=== PATIENT | male | born 1970 | race Caucasian/White ===

== ENCOUNTER 2018-01-15 19:57 | Inpatient (IN) | payer BC ==
[~2018-01-15] VITALS: Ht 180.3 cm; Wt 82.8 kg
--- NOTE | 2018-01-15 20:00 | NUR ---
47 YO male BIB RA from street. Per EMS, patient was found altered on the sidewalk. unknown how he got there, unknown trauma, unknown street drug use. patient was DS to er ninfa. patient is noted to be diaphoretic, tachycardic in the 160's, unable to obtain a blood pressure at this time, pt is moving too much. medicated pt as ordered 2mg IVP Ativan for sedation. patient was restrained per verbal order md Carvajal. PT gowned, 18g left FA IV started, blood sample obtained and sent to lab. rowland cath satrted as ordered, urine sample obtained and sent to lab. patient is still aggitated, will continue to monitor
[2018-01-15] MEDS ORDERED: LORAZEPAM INJ 2 MG/ML VIAL ONE ×2 (20:03→20:16)
[2018-01-15] MEDS ORDERED: ACETAMINOPHEN 650 MG/SUPP.RECT RC ONE ×2 (20:11→20:30)
[2018-01-15] MEDS ORDERED: BENZOIN COMPOUND TINCT 60 ML BOTTLE ONE (20:18)
[2018-01-15] MEDS ORDERED: LORAZEPAM INJ 2 MG/ML VIAL IV ONE ×3 (20:30→22:00)
[2018-01-15] MEDS ORDERED: IV NS 0.9% 1,000 ML BAG IV ONE (20:30)
--- NOTE | 2018-01-15 20:34 | NUR ---
nitubation note: MD Carvajal, RT EMT and RN at bed side for intubation. medicated pt as ordered, 20mg etomidate IVP followed by 80mg rocuronium IVP. PT sedated at 2033, MD Carvajal intubated at 2034, tube size 7.[address] on vent, settings; ac 20 tv 600, peep 5.0 100% fio2
[2018-01-15] MEDS ORDERED: PROPOFOL 100 ML ONE (20:36)
[2018-01-15] MEDS ORDERED: MIDAZOLAM HCL 2 MG/2ML VIAL ONE (20:38)
[2018-01-15 20:39] LABS: BASOPHILS # (AUTO) 0.1 /CMM (0.0-0.2); BASOPHILS % (AUTO) 1.2 % (0.0-2.0); EOSINOPHILS % (AUTO) 1.2 % (0.0-6.0); HEMATOCRIT 46 % (39-51); HEMOGLOBIN 16.3 g/dL (13.5-17.5); LYMPHOCYTES # (AUTO) 3.2 /CMM (0.8-4.8); LYMPHOCYTES % (AUTO) 30.2 % (20.0-44.0); MEAN CORPUSCULAR HEMOGLOBIN 34 PG (26.0-33.0); MEAN CORPUSCULAR HGB CONC 36 g/dl (31.0-36.0); MEAN CORPUSCULAR VOLUME 96 fL (80-96); MONOCYTES # (AUTO) 1.3 /CMM (0.1-1.30); NEUTROPHILS # (AUTO) 5.9 /CMM (1.8-8.9); NEUTROPHILS % (AUTO) 55.4 % (43.0-81.0); PLATELET COUNT (AUTO) 185 /CMM (150-450); RDW COEFFICIENT OF VARIATION 12.1 (11.5-15.0); RED BLOOD CELL COUNT(AUTO) 4.75 MIL/uL (4.5-6.0); WHITE BLOOD COUNT (AUTO) 10.6 K/uL (4.3-11.0)
--- NOTE | 2018-01-15 20:40 | NUR ---
pt transported to CT via gurney with RT, EMT and RN
[2018-01-15 20:50] LABS: CALCIUM, SERUM 8.9 mg/dL (8.5-10.1); CARBON DIOXIDE 19 mmol/L (21-32); CHLORIDE 96 mmol/L (98-107); CREATININE 1.6 mg/dL (0.6-1.3); GLUCOSE 197 mg/dL (74-106); POTASSIUM 3.6 mmol/L (3.5-5.1); SODIUM SERUM 137 mmol/L (136-145); UREA NITROGEN, BLOOD 10 mg/dL (7-18)
[2018-01-15 20:56] LABS: ALANINE AMINOTRANSFERASE 151 U/L (12-78); ALBUMIN 4.4 g/dL (3.4-5.0); ALKALINE PHOSPHATASE 102 U/L (46-116); ASPARTATE AMINOTRANSFERASE 207 U/L (15-37); BILIRUBIN,DIRECT 0.4 mg/dL (0.0-0.2); BILIRUBIN,TOTAL 1.8 mg/dL (0.2-1.0); TOTAL PROTEIN, SERUM 8.1 g/dL (6.4-8.2)
[2018-01-15 20:58] LABS: INR 0.96 (0.85-1.15); TROPONIN I < 0.017 ng/mL (0.00-0.056)
[2018-01-15] MEDS ORDERED: PROPOFOL 100 ML IV PRN (21:00)
[2018-01-15] MEDS ORDERED: VANCOMYCIN 1 GM in IV D5W 250 ML IV ONE (21:00)
[2018-01-15] MEDS ORDERED: CEFTRIAXONE 2 G in IV D5W 50 ML IV ONE (21:00)
[2018-01-15 21:01] LABS: ACETAMINOPHEN < 10 ug/ml (10-30); ALCOHOL, BLOOD < 3 mg/dL (0-0); SALICYLATE < 2.8 mg/dL (2.8-20.0)
[2018-01-15] MEDS ORDERED: CEFTRIAXONE 1 G VIAL ONE (21:05)
[2018-01-15] MEDS ORDERED: VANCOMYCIN 1 GM VIAL ONE (21:05)
--- NOTE | 2018-01-15 21:13 | NUR ---
STARTED ROCEPHIN IV ORDERED
--- NOTE | 2018-01-15 21:27 | NUR ---
urine sample obtained and sent to lab
--- NOTE | 2018-01-15 21:32 | NUR ---
PAGED AdmitSee FOR PANEL - HOME HEALTH CARE[facility]IVER [facility]
[2018-01-15 21:37] LABS: THYROID STIMULATING HORMONE 4.558 uIU/mL (0.358-3.74)
[2018-01-15] MEDS ORDERED: HYDROMORPHONE 1 MG/1 ML DISP.SYRIN IV STA (21:47)
[2018-01-15] MEDS ORDERED: HYDROMORPHONE INJ 2 MG/ML DISP.SYRIN ONE (21:48)
[2018-01-15] MEDS ORDERED: VECURONIUM 10 MG VIAL IV ONE (22:00)
[2018-01-15 22:03] LABS: APPEARANCE,URINE CLEAR (CLEAR); BILIRUBIN,URINE NEGATIVE (NEGATIVE); BLOOD, URINE 2+ Ery/uL (NEGATIVE); COLOR,URINE YELLOW (YELLOW); KETONES,URINE TRACE (NEGATIVE); LEUKOCYTE ESTERASE ,URINE NEGATIVE (NEGATIVE); NITRITE, URINE NEGATIVE (NEGATIVE); PROTEIN,URINE 2+ mg/dl (NEGATIVE); UGLUCOSE TRACE mg/dL (NEGATIVE)
[2018-01-15] MEDS ORDERED: Thiamine 100 MG in IV D5W 50 ML IV ONE (22:30)
[2018-01-15] MEDS ORDERED: MAG HYDROX/AL HYDROX/SIMETH 30 ML UDC PO PRN (22:30)
[2018-01-15] MEDS ORDERED: ACETAMINOPHEN 325 MG TABLET PO PRN (22:30)
[2018-01-15] MEDS ORDERED: HYDROCODONE/APAP 5/325MG 1 EACH TABLET PO PRN (22:30)
[2018-01-15] MEDS ORDERED: MAGNESIUM HYDROXIDE 30 ML UDC PO PRN (22:30)
[2018-01-15] MEDS ORDERED: Z GUARD REMEDY 2 OZ OINT TP PRN (22:30)
[2018-01-15] MEDS ORDERED: ONDANSETRON HCL/PF 4 MG/2 ML VIAL IVP PRN (22:30)
--- NOTE | 2018-01-15 22:30 | NUR ---
Received patient from ED via ACLS intubated bagged by Venkata JIMENEZ and accompanied by RN an EMT. Patient on Diprivan gtt infusing at 70 mcg/kg/min to right arm saline lock and site intact.Connected to mechanical vent by RT on AC 20,TV 600,FIO2 100%,PEEP 5.Admitted with DX:AMS.Patient agitated with bilateral soft wrist restraints on.ST 107 per monitor.Afebrile.Continue to monitor.
[2018-01-15 22:40] VITALS: BP 140/89
[2018-01-15 22:40] LABS: BACTERIA,URINE Moderate /HPF (None Seen); SQUAMOUS EPITHELIAL CELL,UR Few /HPF (None Seen)
[2018-01-15 22:41] LABS: URINE AMORPHOUS URATE Many /HPF (None Seen)
[2018-01-15] MEDS ORDERED: IV NS 0.9% 1,000 ML IV PRN (23:00)
--- NOTE | 2018-01-15 23:00 | NUR ---
Per CXR ETT 8.3 CM above carini.CENTRAL OFFICE REPAIRER,Zhen Colon notified awaiting for orders.
[2018-01-15] MEDS: LORAZEPAM INJ 2 MG/ML VIAL IV PRN (23:11)
--- NOTE | 2018-01-15 23:11 | NUR ---
Patient very agitated PRN Ativan given.Continue to monitor.
[2018-01-15 23:16] LABS: EOSINOPHILS % (AUTO) 0.1 % (0.0-6.0); HEMATOCRIT 39 % (39-51); HEMOGLOBIN 13.2 g/dL (13.5-17.5); LYMPHOCYTES # (AUTO) 0.2 /CMM (0.8-4.8); LYMPHOCYTES % (AUTO) 2.4 % (20.0-44.0); MEAN CORPUSCULAR HEMOGLOBIN 34 PG (26.0-33.0); MEAN CORPUSCULAR HGB CONC 34 g/dl (31.0-36.0); MEAN CORPUSCULAR VOLUME 98 fL (80-96); MONOCYTES # (AUTO) 0.5 /CMM (0.1-1.30); MONOCYTES % (AUTO) 5.5 % (2.0-12.0); PLATELET COUNT (AUTO) 127 /CMM (150-450); RDW COEFFICIENT OF VARIATION 12.9 (11.5-15.0); RED BLOOD CELL COUNT(AUTO) 3.96 MIL/uL (4.5-6.0); WHITE BLOOD COUNT (AUTO) 9.7 K/uL (4.3-11.0)
[2018-01-15] MEDS: PROPOFOL 100 ML IV PRN (23:17)
[2018-01-15 23:23] LABS: ABG BASE EXCESS 0.3 mmol/L; ABG OXYGEN SATURATION 99.2 % (92.0-98.5); ABG PCO2 37.3 mmHg (35.0-45.0); ABG PH 7.432 (7.350-7.450); ABG PO2 474.6 mmHg (75.0-100.0); AaDO2 201.1 mmHg; COHb 0.3 % (0.5-1.5); O2Hb 97.9 % (94.0-97.0); PEEP,BG 5 cm H2O; SITE, ABG Left Brachial
--- NOTE | 2018-01-15 23:24 | NUR ---
POST ABG DONE ON MECH VENT. NOTIFIED RN WITH THE RESULT. FIO2 TITRATED.
[2018-01-15] MEDS ORDERED: Thiamine 100 MG/ML VIAL ONE ×2 (23:27→23:30)
[2018-01-15 23:34] LABS: CALCIUM, SERUM 7.2 mg/dL (8.5-10.1); CARBON DIOXIDE 24 mmol/L (21-32); CHLORIDE 101 mmol/L (98-107); CREATININE 1.2 mg/dL (0.6-1.3); GLUCOSE 191 mg/dL (74-106); LIPASE 147 U/L (73-393); MAGNESIUM 1.5 mg/dL (1.8-2.4); PHOSPHORUS 1.3 mg/dL (2.5-4.9); SODIUM SERUM 138 mmol/L (136-145); UREA NITROGEN, BLOOD 8 mg/dL (7-18)
[2018-01-15 23:37] LABS: POTASSIUM 2.8 mmol/L (3.5-5.1)
--- NOTE | 2018-01-15 23:38 | NUR ---
ETT ADJUSTED PER JUSTICE. TUBE IS NOW AT 26CM AT THE LIP FROM 23CM. FIO2 TITRATED TO 60%. RN NOTIFIED.
[2018-01-15 23:40] VITALS: BP 121/75
[2018-01-15] MEDS ORDERED: PIPERACILLIN /TAZOBACTAM 3.375 G VIAL IV ONE (23:53)
[2018-01-16] VITALS (56 sets, daily range): BP systolic 94–166; BP diastolic 57–111
[2018-01-16] MEDS ORDERED: Potassium Phosphate meq 11 MEQ in IV NS 0.9% 100 ML IV SCH ×2
[2018-01-16 00:01] LABS: CREATINE KINASE MB 5.4 ng/mL (0-3.6)
[2018-01-16] MEDS: PIPERACILLIN /TAZOBACTAM 3.375 G in IV D5W 50 ML IV SCH ×5 (00:09→23:34)
[2018-01-16] MEDS: IV NS 0.9% 1,000 ML IV PRN ×3 (00:36→16:14)
[2018-01-16] MEDS: PROPOFOL 100 ML IV PRN ×10 (00:44→22:09)
[2018-01-16] MEDS: Magnesium 1GM/D5W 100ML PREMIX 100 ML IV SCH ×2 (00:46→01:46)
[2018-01-16] MEDS ORDERED: ROCURONIUM BROMIDE 50 MG/5 ML IV ONE (01:00)
[2018-01-16] MEDS ORDERED: ETOMIDATE 2 MG/ML VIAL IV ONE (01:00)
[2018-01-16] MEDS ORDERED: VECURONIUM 10 MG VIAL IV ONE (01:00)
[2018-01-16] MEDS ORDERED: NORMAL SALINE 10 ML DISP.SYRIN IV ONE (01:00)
[2018-01-16] MEDS: Potassium Phosphate meq 11 MEQ in IV D5W 100 ML IV SCH ×2 (02:00→05:18)
--- NOTE | 2018-01-16 02:00 | NUR ---
Potassium level 2.8 CHAIR CANER,Colon notified with orders.Potassium phosphate gtt started and Magnesium 2 gm iv given
--- NOTE | 2018-01-16 04:00 | NUR ---
Patient resting.VS stable.AM care done.Turned and repositioned.No distress noted.
[2018-01-16 04:49] LABS: EOSINOPHILS % (AUTO) 0.1 % (0.0-6.0); HEMATOCRIT 39 % (39-51); HEMOGLOBIN 13.5 g/dL (13.5-17.5); LYMPHOCYTES # (AUTO) 0.5 /CMM (0.8-4.8); LYMPHOCYTES % (AUTO) 6.1 % (20.0-44.0); MEAN CORPUSCULAR HEMOGLOBIN 34 PG (26.0-33.0); MEAN CORPUSCULAR HGB CONC 35 g/dl (31.0-36.0); MEAN CORPUSCULAR VOLUME 97 fL (80-96); MONOCYTES # (AUTO) 0.6 /CMM (0.1-1.30); MONOCYTES % (AUTO) 7.4 % (2.0-12.0); NEUTROPHILS # (AUTO) 6.7 /CMM (1.8-8.9); NEUTROPHILS % (AUTO) 86.4 % (43.0-81.0); PLATELET COUNT (AUTO) 130 /CMM (150-450); RDW COEFFICIENT OF VARIATION 13.3 (11.5-15.0); RED BLOOD CELL COUNT(AUTO) 3.98 MIL/uL (4.5-6.0); WHITE BLOOD COUNT (AUTO) 7.7 K/uL (4.3-11.0)
[2018-01-16 05:07] LABS: ALBUMIN 3.2 g/dL (3.4-5.0); BILIRUBIN,DIRECT 0.4 mg/dL (0.0-0.2); BILIRUBIN,TOTAL 0.9 mg/dL (0.2-1.0); CALCIUM, SERUM 7.4 mg/dL (8.5-10.1); CREATININE 1.1 mg/dL (0.6-1.3); MAGNESIUM 2.6 mg/dL (1.8-2.4); PHOSPHORUS 1.9 mg/dL (2.5-4.9)
[2018-01-16 05:14] LABS: POTASSIUM 2.6 mmol/L (3.5-5.1)
--- NOTE | 2018-01-16 05:15 | NUR ---
AM labs resulted.K+ level 2.6.Potassium phosphate 2nd bag still infusing.
[2018-01-16 05:16] LABS: THYROID STIMULATING HORMONE 1.168 uIU/mL (0.358-3.74)
--- NOTE | 2018-01-16 07:41 | NUR ---
INITIAL TALENT AGENT NOTE RCVD PT INTUBATED, SEDATED ON DIPRIVAN, BILATERAL SOFT WRIST RESTRAINTS IN PLACE. CIRCULATION CHECKS DONE. SR ON TELE. ETT 7.5 26 AT LIP TOLERATING ORDERED VENT SETTINGS. NO S/O DISTRESS OBSERVED. RIGHT NG TUBE PLACEMENT VERIFIED BY AUSCULTATION/ASPIRATION, GASTRIC CONTENTS OBSERVED IN TUBING. CAMACHO DRAINING PALE, YELLOW URINE. IV SITES C/D/I/PATENT. NO S/O INFILTRATION/PHLEBITIS OBSERVED. IVF INFUSING. WILL CONTINUE TO MONITOR PT FOR SAFETY AND COMFORT. BED IN LOW AND LOCKED POSITION.
[2018-01-16] MEDS: PANTOPRAZOLE 40 MG VIAL IV SCH (08:23)
[2018-01-16] MEDS: VANCOMYCIN 1 GM in IV D5W 250 ML IV SCH ×2 (08:27→16:06)
[2018-01-16] MEDS ORDERED: FEE PK DOSING 1 MIN EA MC ONE (08:54)
--- NOTE | 2018-01-16 10:11 | NUR ---
RUN BOAT OPERATOR NOTE PT TRANSPORTED TO RADIOLOGY FOR CT ABDOMEN/PELVIS PER PROTOCOL WITH RT/RN AT BEDSIDE. PT TOLERATED TRANSPORT WELL BACK IN ROOM AT THIS TIME.
[2018-01-16] MEDS: POTASSIUM CL. PREMIX PERIPHER. 50 ML IV SCH ×10 (10:47→21:01)
[2018-01-16 10:58] LABS: PHOSPHORUS 1.8 mg/dL (2.5-4.9)
[2018-01-16 11:00] LABS: POTASSIUM 2.4 mmol/L (3.5-5.1)
--- NOTE | 2018-01-16 11:12 | NUR ---
Pts nurse Sharon Cohen requested social work consult for this 47-year-old male brought in by ambulance due to "lack of family support." Pt was found laying down in a driveway. Per EMS report, the patient was initially confused and then became combative and was given 5 mg of Versed IM in the field without much response. SW attempted to speak to pt however pt. was intubated and sedated. Per nurse, pt did not have any possessions on his body other than a [place] drivers license. SW reviewed pts chart to look for identifying information and or emergency contact information that could be of help. Pt does not have an emergency person to notify on face sheet. SW called pts contact telephone # (found on face sheet) and recording states, # is disconnected and no longer in service. SW also contacted Missing Persons and spoke to Detective Keller in order to see if pt had been reported missing. Per Detective Keller, pt did not show up as a missing person on their system (i.e. system was checked 2xs). SW attempted to find information pertaining to pts relatives, however was unsuccessful. Plan: GRECIA will follow up with pt and medical team in order to guide course of action going forward.
--- NOTE | 2018-01-16 11:14 | NUR ---
EMERGENCY MEDICINE NOTE CHANGES IN ECG OBSERVED ON TELE MONITOR, ECG ORDERED AND DIFFERS FROM BASELINE, DR. GREEN AND TAMIE MUSA INFORMED. DR. XIE IN UNIT INFORMED TROPONIN ORDERED. TROPONIN RESULTS GIVEN TO DR. GREEN NO FURTHER ORDERS RCVD AFTER HE ACKNOWLEDGED RESULTS.
[2018-01-16] MEDS: LORAZEPAM INJ 2 MG/ML VIAL IV PRN ×2 (12:13→21:19)
--- NOTE | 2018-01-16 14:48 | NUR ---
LION TRAINER NOTE SEDATION VACATION PERFORMED. PT ABLE TO FOLLOW COMMANDS SIMV TRIAL DONE PT APPEARED RESTLESS, ATTEMPTING TO SIT AND GET OUT OF BED DESPITE BEING RE-ORIENTED AND GIVEN DIRECTIONS TO REMAIN CALM. PT APPEARS TO BE REACHING TO SOMETHING THAT'S NOT PRESENT IN THE ROOM. DR. DENNIS IN UNIT CAME TO ASSESS PT AND RECOMMENDED TO PLACE PT BACK ON SEDATION AND ATTEMPT TRIAL IN AM. WILL CONTINUE TO MONITOR PT.
--- NOTE | 2018-01-16 15:29 | NUR ---
BARREL LATHE OPERATOR OUTSIDE NOTE SPOKE WITH GRECIA PRETTY REGARDING PT'S EMERGENCY CONTACT INFORMATION. NOTHING NEW AT THIS TIME. LEFT MESSAGE FOR DR. FRIAS LETTING HER KNOW THAT PT UNABLE TO SIGN CONSENT FOR LP AND NO KNOWN FAMILY/EMERGENCY CONTACT AVAILABLE AT THIS TIME.
--- NOTE | 2018-01-16 15:49 | NUR ---
WAITING FOR THE CONSENT AND RADIOLOGIST IS LEAVING BEFORE 4PM, INFORMED NURSE ABOUT IT.
[2018-01-16] MEDS: Potassium Phosphate meq 11 MEQ in IV NS 0.9% 100 ML IV SCH ×2 (16:29→19:32)
--- NOTE | 2018-01-16 18:57 | NUR ---
WATERPROOFER HELPER NOTE PT REMAINS SEDATED, INTUBATED TOLERATING WELL, SR ON TELE. RIGHT NG TUBE IN PLACE, CLAMPED. CAMACHO TO GRAVITY DRAINING PALE GREENISH URINE. IV SITES C/D/I/PATENT. IVF INFUSING. BILATERAL SOFT WRIST RESTRAINTS IN PLACE. CIRCULATION CHECKS DONE. PT'S CARE WILL BE ENDORSED TO COMPUTER REPAIRER RN FOR CONTINUITY OF CARE. BED IN LOW AND LOCKED POSITION.
--- NOTE | 2018-01-16 19:30 | NUR ---
Received patient sedated occasionally open eyes not following commands.Patient orally intubated to mechanical vent with same prescribed settings and tolerating well.No distress noted.SR per monitor. VS stable.NGT to right nares verified placement intact ,patent and clamped.Remains on NPO status. FC to gravity draining yellow urine. All iv's infusing well and sites intact.Turned and repositioned.
--- NOTE | 2018-01-16 20:00 | NUR ---
Telephone consent for Lumbar Puncture obtained from patient mother Natalee Downey witness by 2 RN.
--- NOTE | 2018-01-16 20:10 | NUR ---
Patient GF visiting with permission from patient mother.Updated of patient status.
--- NOTE | 2018-01-16 21:20 | NUR ---
Patient agitated and PRN Ativan administered.Continue to monitor.
[2018-01-17] VITALS (48 sets, daily range): BP systolic 109–183; BP diastolic 55–135
--- NOTE | 2018-01-17 | NUR ---
Patient resting vs remains stable.No distress noted.Turned and repositioned.
[2018-01-17] MEDS: PROPOFOL 100 ML IV PRN ×5 (00:19→12:20)
[2018-01-17] MEDS: VANCOMYCIN 1 GM in IV D5W 250 ML IV SCH ×3 (00:22→16:29)
[2018-01-17] MEDS: IV NS 0.9% 1,000 ML IV PRN ×3 (00:22→18:03)
--- NOTE | 2018-01-17 04:00 | NUR ---
VS stable.Bed bath rendered and complete linens changed.Oral care done.Turned and repositioned.
[2018-01-17 04:41] LABS: BASOPHILS % (AUTO) 0.1 % (0.0-2.0); HEMATOCRIT 39 % (39-51); HEMOGLOBIN 13.3 g/dL (13.5-17.5); LYMPHOCYTES # (AUTO) 0.8 /CMM (0.8-4.8); MEAN CORPUSCULAR HEMOGLOBIN 34 PG (26.0-33.0); MEAN CORPUSCULAR HGB CONC 34 g/dl (31.0-36.0); MEAN CORPUSCULAR VOLUME 98 fL (80-96); MONOCYTES # (AUTO) 0.7 /CMM (0.1-1.30); MONOCYTES % (AUTO) 9.4 % (2.0-12.0); NEUTROPHILS # (AUTO) 5.4 /CMM (1.8-8.9); NEUTROPHILS % (AUTO) 78.5 % (43.0-81.0); PLATELET COUNT (AUTO) 108 /CMM (150-450); RDW COEFFICIENT OF VARIATION 13.4 (11.5-15.0); RED BLOOD CELL COUNT(AUTO) 3.99 MIL/uL (4.5-6.0); WHITE BLOOD COUNT (AUTO) 6.9 K/uL (4.3-11.0)
[2018-01-17 05:07] LABS: BILIRUBIN,TOTAL 0.9 mg/dL (0.2-1.0); CALCIUM, SERUM 7.5 mg/dL (8.5-10.1); POTASSIUM 3.4 mmol/L (3.5-5.1); TOTAL PROTEIN, SERUM 5.8 g/dL (6.4-8.2)
[2018-01-17 05:12] LABS: BILIRUBIN,DIRECT 0.4 mg/dL (0.0-0.2); BILIRUBIN,TOTAL 0.9 mg/dL (0.2-1.0); TOTAL PROTEIN, SERUM 5.9 g/dL (6.4-8.2)
[2018-01-17 05:15] LABS: TROPONIN I 0.473 ng/mL (0.00-0.056)
[2018-01-17] MEDS: PIPERACILLIN /TAZOBACTAM 3.375 G in IV D5W 50 ML IV SCH ×4 (05:30→23:23)
--- NOTE | 2018-01-17 05:36 | NUR ---
Patient abnormal labs relayed to FOREIGN EXCHANGE STUDENT COORDINATOR,Zhen Colon.Troponin 0.473 and blood culture gm positive cocci in clusters. Patient is already on Vancomycin and Zosyn.No new orders received.
--- NOTE | 2018-01-17 07:49 | NUR ---
INITIAL CREATIVE WRITER NOTE RCVD PT LIGHTLY SEDATED, INTUBATED, SR ON TELE SHOWING NO S/O DISTRESS/PAIN AT THIS TIME. TOLERATING ORDERED VENT SETTINGS. CAMACHO TO GRAVITY AND NG TUBE PLACEMENT VERIFIED BY AUSCULTATION/ASPIRATION, GASTRIC CONTENTS OBSERVED IN TUBING. IV SITES C/D/I/PATENT. NO S/O INFILTRATION/PHLEBITIS OBSERVED UPON FLUSHING. WILL CONTINUE TO MONITOR PT FOR SAFETY AND COMFORT. BED IN LOW AND LOCKED POSITION. CALL LIGHT WITHIN REACH.
[2018-01-17] MEDS: PANTOPRAZOLE 40 MG VIAL IV SCH (08:20)
--- NOTE | 2018-01-17 10:36 | NUR ---
SW met with pts nurse Sharon Begun to follow up on any updates regarding pts family. Pts nurse stated they were able to make contact with pts mother and girlfriend. Pts girlfriend was at bedside currently. Pt has no other psychosocial needs at this time and we will re evaluate if necessary.
[2018-01-17 11:12] LABS: CSF GLUCOSE 61 mg/dL (40-70); CSF PROTEIN 38.1 mg/dL (15-45)
--- NOTE | 2018-01-17 11:12 | NUR ---
JEWEL CORNER BRUSHING MACHINE OPERATOR NOTE PT TAKEN TO RADIOLOGY FOR LUMBAR PUNCTURE, PT SEDATED TRANSPORTED VIA BED PER PROTOCOL WITH RN/RT AT BEDSIDE. PT TOLERATED PROCEDURE WELL. PT WAS BROUGHT BACK TO HIS ROOM, VITAL SIGNS STABLE. PT'S SIGNIFICANT OTHER AT BEDSIDE UPDATED ON PT'S CONDITION. WILL CONTINUE TO MONITOR
[2018-01-17] MEDS ORDERED: LORAZEPAM INJ 2 MG/ML VIAL IV PRN (11:30)
[2018-01-17] MEDS: POTASSIUM CL. PREMIX PERIPHER. 50 ML IV SCH ×4 (11:32→15:27)
--- NOTE | 2018-01-17 14:00 | NUR ---
COMPUTER TESTER NOTE SEDATION VACATION PERFORMED PT AWAKE, ABLE TO FOLLOW COMMANDS, APPEARS CALM AT THIS TIME. WEANING TRIAL STARTED WILL CONTINUE TO MONITOR.
[2018-01-17 15:17] LABS: ABG BASE EXCESS -3.3 mmol/L; ABG OXYGEN SATURATION 98.5 % (92.0-98.5); ABG PH 7.427 (7.350-7.450); ABG PO2 171.7 mmHg (75.0-100.0); AaDO2 77.9 mmHg; COHb 0.3 % (0.5-1.5); MetHb 0.8 % (0.0-1.5); O2Hb 97.4 % (94.0-97.0); PEEP,BG 5 cm H2O; SITE, ABG Right Brachial; VT, ABG 600 mL
[2018-01-17] MEDS ORDERED: DC PROPOFOL WHEN EXTUBATED XX PRN (15:30)
--- NOTE | 2018-01-17 15:40 | NUR ---
PT EXTUBATED PER MD ORDER POST WEAVING TRIAL AND ABG. ZERO DISTRESS NOTED PT ABLE TO COUGH CLEAR AIRWAY. PLACED ON 2 LPM O2. ZERO STRIDOR NOTED B/S CLEAR.
--- NOTE | 2018-01-17 16:34 | NUR ---
SALES SERVICE ASSISTANT NOTE BEDSIDE SWALLOW EVAL DONE PT ABLE TO TOLERATE ICE CHIPS, THIN LIQUIDS, PUDIN, AND JELLOW CONSISTENCIES. NO COUGHING OR CLEARING OF THROAT OBSERVED. DINNER TRAY ORDERED. WILL CONTINUE TO MONITOR.
--- NOTE | 2018-01-17 18:55 | NUR ---
DICTATING MACHINE TYPIST NOTE PT'S VITAL SIGNS REMAIN STABLE, TOLERATING O2 VIA NC, SR ON TELE, NG-TUBE AND CAMACHO CATH DISCONTINUED. IV SITES C/D/I/PATENT. NO S/O INFILTRATION/PHLEBITIS OBSERVED IVF INFUSING. PT'S SIGNIFICANT OTHER AT BEDSIDE. PT'S CARE WILL BE ENDORSED TO ADVERTISING WRITER RN FOR CONTINUITY OF CARE. BED IN LOW AND LOCKED POSITION. CALL LIGHT WITHIN REACH. Addendum: 01/17/18 at 1929 by ABA WRIGHT RN TAMIE MUSA INFORMED OF PT'S MENTAL STATUS. PT SEEMS TO BE HAVING HALLUCINATIONS, AND SEEING THINGS. PER PT'S GIRLFRIEND THIS IS NOT PT'S BASELINE. LENCHO RECOMMENDED PSYCHIATRIC CONSULT WITH DR. SPARKS. ADVERTISING WRITER RN INFORMED.
--- NOTE | 2018-01-17 19:49 | NUR ---
ICU NOTES ON INITIAL ASSESSMENT AT 1930 PT WAS AAOX3.WENT BACK TO ROOM AND PT'S HEAD WAS IN BETWEEN SIDE RAILS ATTEMPTING TO REACH A CUP.CONFUSED AND DISORIENTED AT THI POINT,RE-ORIENTED TO TIME PLACE AND PERSON PLUS SURROUNDINGS.DRANK A GLASSFUL OF WATER.BED ALARM ON, SIDE RAILS UPX3,BED ON LOW POSITION AND CALL LIGHT W/IN REACH OF PT.
--- NOTE | 2018-01-17 20:20 | NUR ---
ICU/RN PARENTS AND GIRLFRIEND AT BEDSIDE.PARENTS INFORMED OF PT'S CONDITION.PT HOSTILE AT TIMES AND CURSES A LOT.GIRLFRIEND TOLD ME THAT PT.DRINKS 1 BOTTLE OF VODKA A DAY.
--- NOTE | 2018-01-17 23:40 | NUR ---
POWERHOUSE ENGINEER NOTE NOTED PATIENT REMOVING ALL LINES AND MONITORING DEVICES, REORIENTED PATIENT, PATIENT BECAME AGGRESSIVE AND DEMANDED FOR HIS GIRLFRIEND TO BE PRESENT. GIRLFRIEND WAS CALLED AND AGREED TO STAY WITH PATIENT, CHARGE NURSE GAVE PERMISSION FOR GF TO STAY. GIRLFRIEND ARRIVED TO CALM PATIENT DOWN, PATIENT BECAME AGGRESSIVE TOWARDS GIRLFRIEND AND MYSELF, CHARGE NURSE NOTIFIED AND ELIJAH BRUSH CALLED. PATIENT EXTREMELY PARANOID WITH AUDITORY HALLUCINATIONS, HEARING VOICES AND TALKING TO SELF. AFTER 30 MINUTES PATIENT CALMED DOWN. NO INJURY NOTED.
[2018-01-18] VITALS: BP 139/98
[2018-01-18] MEDS: VANCOMYCIN 1 GM in IV D5W 250 ML IV SCH ×4 (00:16→23:13)
--- NOTE | 2018-01-18 02:02 | NUR ---
ICU/RN UNABLE TO GET BP,O2 SATURATION PT REFUSED TO HAVE THEM ON.PT STEVENM W/ GIRLFRIEND LYING BESIDE HIM. Addendum: 01/18/18 at 0400 by ALEJANDRO UMAÑA RN JASON MURGUIA.
--- NOTE | 2018-01-18 04:20 | NUR ---
ICU/RN RESHMA SPORTS THERAPIST CALLED FOR PT'S C/O SEVERE BACK PAIN[CHRONIC]GIVEN 2MG MORPHINE IVP ORDERED.CONNECTED IVF TO RT.HAND IV SITE IN ORDER TO GIVE ABX.PT CONTINUES TO REFUSE TO BE CONNECTED TO MONITOR AND PULSE OXIMETRY EVEN W/ MUCH ENCOURAGEMENT.
[2018-01-18] MEDS: MORPHINE SULFATE INJ 2 MG/ML DISP.SYRIN IV PRN (04:30)
[2018-01-18 04:58] LABS: BASOPHILS % (AUTO) 0.4 % (0.0-2.0); EOSINOPHILS % (AUTO) 0.7 % (0.0-6.0); HEMATOCRIT 38 % (39-51); HEMOGLOBIN 13.1 g/dL (13.5-17.5); LYMPHOCYTES # (AUTO) 0.7 /CMM (0.8-4.8); LYMPHOCYTES % (AUTO) 10.3 % (20.0-44.0); MEAN CORPUSCULAR HEMOGLOBIN 34 PG (26.0-33.0); MEAN CORPUSCULAR HGB CONC 34 g/dl (31.0-36.0); MEAN CORPUSCULAR VOLUME 99 fL (80-96); MONOCYTES # (AUTO) 0.7 /CMM (0.1-1.30); MONOCYTES % (AUTO) 10.4 % (2.0-12.0); NEUTROPHILS # (AUTO) 5.2 /CMM (1.8-8.9); NEUTROPHILS % (AUTO) 78.2 % (43.0-81.0); PLATELET COUNT (AUTO) 119 /CMM (150-450); RED BLOOD CELL COUNT(AUTO) 3.86 MIL/uL (4.5-6.0); WHITE BLOOD COUNT (AUTO) 6.7 K/uL (4.3-11.0)
--- NOTE | 2018-01-18 05:00 | NUR ---
ICU./RN. SOME OF THE INTERVENTIONS NOT PERFORMED PT UNCOOPERATIVE.
[2018-01-18 05:07] LABS: CALCIUM, SERUM 8.3 mg/dL (8.5-10.1); CREATININE 0.9 mg/dL (0.6-1.3); POTASSIUM 3.5 mmol/L (3.5-5.1)
[2018-01-18] MEDS: PIPERACILLIN /TAZOBACTAM 3.375 G in IV D5W 50 ML IV SCH ×4 (05:20→23:13)
--- NOTE | 2018-01-18 07:00 | NUR ---
ICU/RN CONTINUES TO REFUSE MONITOR, PULSE OXIMETRY,VITAL SIGNS.SLEPT AT INTERVALS AFTER MORPHINE GIVEN.
--- NOTE | 2018-01-18 07:31 | NUR ---
ICU/RN REPOT AND CARE OF PT.GIVEN TO YURI.PT CALM AT THIS TIME.INFORMED CN AND YURI REGARDING BLISTER ON LEFT FOREARM AND TO TAKE PICTURE OF IT PT.REFUSED TO HAVE IT DONE.
--- NOTE | 2018-01-18 08:00 | NUR ---
Patient is awake and alert, receiving IV antibiotics around the clock. He has some generalized pain, however is not requesting any pain meds. Venkata Gooden RN
[2018-01-18] MEDS: PANTOPRAZOLE 40 MG VIAL IV SCH (08:24)
--- NOTE | 2018-01-18 10:00 | NUR ---
Patient is off cardioscope since last noc, and doctors are aware. Family, girlfriend at bedside. Venkata Gooden RN
--- NOTE | 2018-01-18 12:30 | NUR ---
Dr Ramírez visits patient updated on present condition and orders written. Patient is not eating lunch due to sore left tongue. aware. Venkata Gooden RN
[2018-01-18 16:00] VITALS: BP 149/84
--- NOTE | 2018-01-18 16:00 | NUR ---
Patient ambulated in carver with girlfriend. He has stable gait, and no sob noted while walking. Venkata Gooden RN
--- NOTE | 2018-01-18 18:31 | NUR ---
Patient transferring to room 313 bed 1, and report called to Payal SANTOS receiving patient. Will transport via . Venkata Gooden RN
[2018-01-18 19:02] VITALS: BP 146/88
[2018-01-18] MEDS: LACTOBACILLUS RHAMNOSUS GG 1 EACH CAP.SPRINK PO SCH (19:02)
--- NOTE | 2018-01-18 19:40 | NUR ---
1854- PATIENT ARRIVED FROM ICU.ZOSYN RUNNING PER ORDERS PER SAUSAGE MEAT TRIMMERTYRON. PATIENT AOX4,. NONLABORED BREATHING NOTED ON ROOM AIR. DENYING PAIN. PATIENT AMBULATING WITH STEADY MANNER WITH ASSISTANCE. IV SITE ON RIGHT FOREARM PATENT AND INTACT. IV ON RT WRIST GAUGE 20 PATENT AND INTACT. DENYING HALLUCINATIONS. EDUCATED DIRECTOR OF TEACHING AND LEARNING LIGHT USAGE. BED IN LOWEST LOCKED POSITION. CALL LIGHT WITHIN REACH. ENDORSED TO NEXT SHIFT
[2018-01-18 20:00] VITALS: BP 150/95
--- NOTE | 2018-01-18 20:00 | NUR ---
RECEIVED PT ALERT , ORIENTED, AMBULATORY, PT WITH GIRLFRIEND REQUESTING TO HAVE HIS HAIR WASH UP, GIVEN LIQUID SOAP AND CLOTHES AND TOWELS . PT ASSISTED BY GIRLFRIEND IN THE SHOWER ROOM. PT DENIES ANY PAIN OR DISCOMFORT, HEPLOCK RIGHTFOREARM REMOVED DUE TO INFILTRATION AND REDNESS AND TENDER. LEFT WITH 1 IV SITE RIGHT ARM PATENT AND INTACT.CONTINUE WITH ANTIBIOTICS, VSS,AFEBRILE.
[2018-01-19] MEDS: PIPERACILLIN /TAZOBACTAM 3.375 G in IV D5W 50 ML IV SCH ×2 (05:42→12:52)
--- NOTE | 2018-01-19 07:00 | NUR ---
PT SLEPT WELL OVERNIGHT, VOIDED TO TOILET X3 OVERNIGHT, DENIES ANY PAIN OR DISCOMFORT,CONTINUE WITH ANTIBIOTICS. ALL NEEDS ATTENDED.NO SIGNIFICANT CHANGE OVERNIGHT.
--- NOTE | 2018-01-19 07:33 | NUR ---
RN INITIAL NOTES PATIENT AOX4,. NONLABORED BREATHING NOTED ON ROOM AIR. DENYING PAIN. IV SITE PATENT AND INTACT. DENYING HALLUCINATIONS. EDUCATED CHARGE RN LIGHT USAGE. BED IN LOWEST LOCKED POSITION. CALL LIGHT WITHIN REACH. DENYING SI AND HI
[2018-01-19 07:44] LABS: BASOPHILS % (AUTO) 0.5 % (0.0-2.0); EOSINOPHILS % (AUTO) 2.9 % (0.0-6.0); HEMATOCRIT 40 % (39-51); HEMOGLOBIN 13.6 g/dL (13.5-17.5); LYMPHOCYTES # (AUTO) 0.9 /CMM (0.8-4.8); LYMPHOCYTES % (AUTO) 15.8 % (20.0-44.0); MEAN CORPUSCULAR HEMOGLOBIN 34 PG (26.0-33.0); MEAN CORPUSCULAR HGB CONC 34 g/dl (31.0-36.0); MEAN CORPUSCULAR VOLUME 98 fL (80-96); MONOCYTES # (AUTO) 0.9 /CMM (0.1-1.30); NEUTROPHILS # (AUTO) 3.6 /CMM (1.8-8.9); NEUTROPHILS % (AUTO) 64.8 % (43.0-81.0); PLATELET COUNT (AUTO) 135 /CMM (150-450); RDW COEFFICIENT OF VARIATION 12.9 (11.5-15.0); RED BLOOD CELL COUNT(AUTO) 4.05 MIL/uL (4.5-6.0); WHITE BLOOD COUNT (AUTO) 5.6 K/uL (4.3-11.0)
[2018-01-19 08:00] VITALS: BP 152/90
[2018-01-19 08:00] LABS: CALCIUM, SERUM 8.8 mg/dL (8.5-10.1); CREATININE 0.9 mg/dL (0.6-1.3); POTASSIUM 3.6 mmol/L (3.5-5.1)
[2018-01-19] MEDS: LACTOBACILLUS RHAMNOSUS GG 1 EACH CAP.SPRINK PO SCH ×2 (08:26→16:32)
[2018-01-19] MEDS: MORPHINE SULFATE INJ 2 MG/ML DISP.SYRIN IV PRN (08:30)
[2018-01-19] MEDS: VANCOMYCIN 1 GM in IV D5W 250 ML IV SCH ×2 (08:54→16:32)
[2018-01-19] MEDS: PANTOPRAZOLE 40 MG TABLET.DR PO SCH (10:06)
[2018-01-19 16:00] VITALS: BP 128/84
--- NOTE | 2018-01-19 16:30 | NUR ---
PATIENT STATING THAT HE HAS NO KNOWN ALLERGIES
--- NOTE | 2018-01-19 19:11 | NUR ---
MS RN NOTES Report received. Patient received in bed, resting comfortably, awake and verbally responsive. Alert & oriented x4. Family at bedside. IV on right hand SL noted. Not in any type of distress. Denies any pain at this moment. Safety measures in place. will continue to monitor and assess patient
--- NOTE | 2018-01-19 19:15 | NUR ---
RN CLOSING NOTES PATIENT AOX4,. NONLABORED BREATHING NOTED ON ROOM AIR. DENYING PAIN. IV SITE PATENT AND INTACT. DENYING HALLUCINATIONS. EDUCATED MANAGER STUDY LIGHT USAGE. BED IN LOWEST LOCKED POSITION. CALL LIGHT WITHIN REACH. DENYING SI AND HI ENDORSED TO TOM GARZA
[2018-01-19 20:00] VITALS: BP 148/77
[2018-01-19 22:00] VITALS: BP 148/77
--- NOTE | 2018-01-20 07:27 | NUR ---
MS RN CLOSING NOTES All needs provided and met. no changes noted or reported. Safety measures in place. Report endorsed to TOM Zarate.
--- NOTE | 2018-01-20 07:29 | NUR ---
RN OPENING NOTES RECEIVED PATIENT IN STABLE CONDITION, RESTING IN BED, A/OX4, ABLE TO VERBALIZE NEEDS. NO ACUTE DISTRESS, NO SOB. DENIED PAIN OR DISCOMFORT AT THE MOMENT. IV SITE INTACT AND PATENT. KEPT PATIENT SAFE AND COMFORTABLE. BED IN LOW/LOCKED POSITION, SIDERAILS UPX2, CALL LIGHT IN REACH. WILL CONTINUE TO MONITOR ACCORDINGLY.
[2018-01-20 08:00] VITALS: BP 147/84
[2018-01-20] MEDS: PANTOPRAZOLE 40 MG TABLET.DR PO SCH (08:46)
[2018-01-20] MEDS: LACTOBACILLUS RHAMNOSUS GG 1 EACH CAP.SPRINK PO SCH (08:46)
[2018-01-20 09:16] LABS: *WEST NILE VIRUS IgG, CSF Negative (Negative)
[2018-01-20 12:11] LABS: *WEST NILE VIRUS IgM, CSF Negative (Negative)
--- NOTE | 2018-01-20 12:45 | NUR ---
CELLULAR BIOLOGIST NOTES DISCHARGED PATIENT IN STABLE CONDITION, PICKED UP BY [facility], ACCOMPANIED PATIENT VIA WHEELCHAIR AT THE LOBBY BY PRIMARY RN. DISCHARGE INSTRUCTIONS GIVEN TO PATIENT, VERBALIZED UNDERSTANDING, DISCHARGE PAPERWORK GIVEN. ALL BELONGINGS RETURNED, FORM SIGNED. REMOVED IV, APPLIED PRESSURE, NO BLEEDING, NO COMPLICATIONS. REMOVED NAME BAND.
== END 2018-01-20 12:50 | disposition home or self-care (01) | DRG 917 ==
LOC: ER 19:59 → ICU 21:24 → MED 01-18 18:40
PROVIDERS: ADMIT Nurse Practitioner Acute Care; ATTEND Nurse Practitioner Acute Care
PROC: 0BH18EZ Insertion of Endotracheal Airway into Trachea, Via Natural or Artificial Opening Endoscopic (ICD-10-PCS; principal; 2018-01-15)
PROC: 5A1945Z Respiratory Ventilation, 24-96 Consecutive Hours (ICD-10-PCS; principal; 2018-01-15)
PROC: 00JU3ZZ Inspection of Spinal Canal, Percutaneous Approach (ICD-10-PCS; 2018-01-17)
DX: T50.901A Poisoning by unspecified drugs, medicaments and biological substances, accidental (unintentional), initial encounter (principal); A41.9 Sepsis, unspecified organism; N17.0 Acute kidney failure with tubular necrosis; J96.00 Acute respiratory failure, unspecified whether with hypoxia or hypercapnia; K72.00 Acute and subacute hepatic failure without coma; I21.A1 Myocardial infarction type 2; G92 Toxic encephalopathy; R65.20 Severe sepsis without septic shock; T67.0XXA Heatstroke and sunstroke, initial encounter; E87.2 Acidosis; M62.82 Rhabdomyolysis; F10.239 Alcohol dependence with withdrawal, unspecified; R56.9 Unspecified convulsions; E03.9 Hypothyroidism, unspecified; D69.6 Thrombocytopenia, unspecified; E83.42 Hypomagnesemia; E87.6 Hypokalemia; Y90.0 Blood alcohol level of less than 20 mg/100 ml; Y92.9 Unspecified place or not applicable; F32.9 Major depressive disorder, single episode, unspecified; Z90.49 Acquired absence of other specified parts of digestive tract; Z82.0 Family history of epilepsy and other diseases of the nervous system; Z80.3 Family history of malignant neoplasm of breast; K82.9 Disease of gallbladder, unspecified; K21.9 Gastro-esophageal reflux disease without esophagitis; G89.29 Other chronic pain
CPT/HCPCS: 31720; 36415; 36600; 62270; 70450-TC; 71045-TC; 72125-TC; 76700-TC; 80048-TC; 80053-TC; 80061-TC; 80076-TC; 80202-TC; 80305; 81000-TC; 82140-TC; 82550-TC; 82553-TC; 82803-TC; 82962-TC; 83605-TC; 83690-TC; 83735-TC; 84100-TC; 84132-TC; 84425; 84439-TC; 84443-TC; 84484-TC; 85025-TC; 85730-TC; 86709; 86788; 86789; 87040-TC; 87070-TC; 87081-TC; 87086-TC; 87186-TC; 87340; 89051-TC; 93307-TC; 94002-TC; 94003-TC; 94762-TC; 94799-TC; 95819-TC; 99082-TC; A4606; C9113; G0480; J0696; J1170; J2060; J2250; J2270; J2543; J3370; J3411; J3475; J3480; J3490; J7030; J7040; J7060; Z7610